=== PATIENT | male | born 1990 | race Two or more races ===

== ENCOUNTER 2016-04-22 01:55 | Emergency (ER) | payer SELFPAY ==
[~2016-04-22] VITALS: Ht 170.2 cm; Wt 72.6 kg
[2016-04-22 01:59] VITALS: BP 119/78
--- NOTE | 2016-04-22 03:04 | Emergency Room Report ---
History of Present Illness General Chief Complaint: Substance Abuse Source: Patient Present Illness HPI Is a 25-year-old male with no past medical history. He went to place patient said that he was using drugs tonight. Denies any symptom. Said he was using PCP or methamphetamine. Denies suicidal thought homicidal thought. No other complaint. Allergies: Coded Allergies: No Known Allergies (Unverified , 04/22/16) Patient History Past Medical History: see triage record, old chart reviewed Past Surgical History: none Pertinent Family History: none Social History: Denies: smoking Immunizations: other Reviewed Nursing Documentation: PMH: Agreed, PSxH: Agreed Nursing Documentation-PMH Past Medical History: No Stated History Review of Systems Eye: Denies: blurred vision, eye pain ENT: Denies: ear pain, nose congestion, throat swelling Respiratory: Denies: cough, shortness of breath Cardiovascular: Denies: chest pain, palpitations Gastrointestinal: Denies: abdominal pain, diarrhea, nausea, vomiting Musculoskeletal: Denies: back pain, joint pain Skin: Denies: rash Neurological: Denies: headache, numbness Endocrine: Denies: increased thirst, increased urine Hematologic/Lymphatic: Denies: easy bruising All Other Systems: negative except mentioned in HPI Physical Exam Vital Signs Date Time Temp Pulse Resp B/P Pulse Ox O2 Delivery O2 Flow Rate FiO2 04/22/16 01:49 61 18 125/80 99 Room Air 04/22/16 01:59 97.0 vitals normal Sp02 EP Interpretation: reviewed, normal General Appearance: well appearing, no apparent distress, alert Head: normocephalic, atraumatic Eyes: bilateral eye EOMI, bilateral eye PERRL ENT: hearing grossly normal, normal pharynx Neck: full range of motion, supple, no meningismus Respiratory: chest non-tender, lungs clear, normal breath sounds Cardiovascular #1: regular rate, rhythm, no murmur Gastrointestinal: normal bowel sounds, non tender, no mass, no organomegaly, no bruit, non-distended Musculoskeletal: back normal, gait/station normal, normal range of motion Psychiatric: mood/affect normal Skin: warm/dry Medical Decision Making Diagnostic Impression: Primary Impression: Substance abuse ER Course Patient presents with drug abuse. Unlikely recent use. He claimed we'll use an hour ago. He is sleepy and not tachycardic. He denies suicidal thought homicidal thought. We'll discharge home. This patient is a chronic risk of self injury due to poor impulse control, limited coping skills, and judgment intermittently impaired by intoxication. I believe that the available clinical evidence to suggest that these characteristics derived primarily from personality disorder and are likely very stable over time. Hospitalization would likely attenuate risk of self-harm only during nursing home period, without lasting risk reduction. Serious self-harm , while possible, would likely be inadvertent, and because of impulsivity, and foreseeable. For these reasons, I do not believe hospitalization would provide meaningful reduction in risk of self-harm. Last Vital Signs Date Time Temp Pulse Resp B/P Pulse Ox O2 Delivery O2 Flow Rate FiO2 04/22/16 01:59 97.0 66 16 119/78 97 Room Air Status: improved Disposition: HOME, SELF-CARE Condition: Stable Patient Instructions: Substance Use Disorder Additional Instructions: Followup with your DrNicci in 7 days. Abstain from drugs and alcohol. Return if worse. ELMER BAIRES M.D. Apr 22, 2016 03:04
[2016-04-22 03:19] VITALS: BP 124/82
[2016-04-22 03:20] VITALS: BP 124/82
[2016-07-11] MEDS ORDERED: UNOBMED (16:23)
== END 2016-04-22 03:20 | disposition home or self-care (01) ==
LOC: EDBD 01:55 → EMR 02:18
DX: F15.10 Other stimulant abuse, uncomplicated (principal)
CPT/HCPCS: 99282

== ENCOUNTER → 2016-07-11 | Emergency (ER) | payer SELFPAY ==
[~2016-07-11] VITALS: Ht 172.7 cm; Wt 65.8 kg
[~2016-07-11] MED LIST: DiphenhydrAMINE 50mg/ml Inj IM ONE; DiphenhydrAMINE 50mg/ml Inj ONE; Haloperidol 5mg/ml Inj IM ONE; Haloperidol 5mg/ml Inj ONE; LORazepam Inj 2mg/ml 1ml IM ONE; UNOBMED
--- NOTE | 2016-07-11 17:12 | Emergency Room Report ---
History of Present Illness General Chief Complaint: Behavioral Complaint Source: EMS Present Illness HPI Patient is brought in by paramedics and police department Patient was initially contacted by police department after being found acting bizarre there were not around him It was recommended for the patient to be put on a 5150 was brought to the emergency room Patient here remains somnolent There was no reports of trauma at the scene Patient had initially been acting and behaving appropriately however the police report the patient began acting in a bizarre manner and having auditory and visual hallucinations Unknown regarding the patient's past medical history Unknown regarding psychiatric history or drug abuse History of present illness is limited as the patient himself does not provide any further input , Allergies: Coded Allergies: No Known Allergies (Unverified , 04/22/16) Patient History Limited by: medical condition Pertinent Family History: unable to obtain Reviewed Nursing Documentation: PMH: Agreed, PSxH: Agreed Nursing Documentation-PMH Past Medical History Deferred: Patient Unconscious Review of Systems All Other Systems: negative except mentioned in HPI Physical Exam Vital Signs Date Time Temp Pulse Resp B/P Pulse Ox O2 Delivery O2 Flow Rate FiO2 07/11/16 16:15 86 18 106/71 97 Sp02 EP Interpretation: reviewed, normal General Appearance: no apparent distress Head: normocephalic, atraumatic Eyes: bilateral eye EOMI, bilateral eye PERRL ENT: normal pharynx Neck: supple, thyroid normal Respiratory: lungs clear, normal breath sounds Cardiovascular #1: regular rate, rhythm, no edema Gastrointestinal: non tender, soft, no mass Musculoskeletal: other - Patient does not follow commands however when the patient became aggressive moving all extremities without focal deficit, Neurologic: other - Responsive to physical stimuli, patient also has become more verbal throughout his stay Skin: no rash, warm/dry Lymphatic: no adenopathy Medical Decision Making Diagnostic Impression: Primary Impression: Behavioral change Additional Impression: Medical clearance for psychiatric admission ER Course Patient's complex requiring multiple blood work IV establishment Patient was found to be positive for multiple drugs has done better throughout his stay Given his auditory and visual hallucinations was seen by psychiatric eval team and placed on a psychiatric hold Patient has been further medically stabilized and cleared and the son being transported for further inpatient care Labs Test 07/11/16 17:00 07/11/16 17:15 White Blood Count 12.6 K/UL (4.8-10.8) Red Blood Count 4.56 M/UL (4.70-6.10) Hemoglobin 13.0 G/DL (14.2-18.0) Hematocrit 41.2 % (42.0-52.0) Mean Corpuscular Volume 90 FL (80-99) Mean Corpuscular Hemoglobin 28.6 PG (27.0-31.0) Mean Corpuscular Hemoglobin Concent 31.6 G/DL (32.0-36.0) Red Cell Distribution Width 13.1 % (11.6-14.8) Platelet Count 308 K/UL (150-450) Mean Platelet Volume 6.9 FL (6.5-10.1) Neutrophils (%) (Auto) 75.5 % (45.0-75.0) Lymphocytes (%) (Auto) 16.6 % (20.0-45.0) Monocytes (%) (Auto) 5.2 % (1.0-10.0) Eosinophils (%) (Auto) 2.0 % (0.0-3.0) Basophils (%) (Auto) 0.8 % (0.0-2.0) Sodium Level 139 mEQ/L (135-145) Potassium Level 3.7 mEQ/L (3.4-4.9) Chloride Level 97 mEQ/L (98-107) Carbon Dioxide Level 23 mEQ/L (20-30) Anion Gap 19 (5-15) Blood Urea Nitrogen 12 mg/dL (7-23) Creatinine 0.8 mg/dL (0.7-1.2) Estimat Glomerular Filtration Rate > 60 mL/min (>60) Glucose Level 94 mg/dL (74-106) Calcium Level 9.0 mg/dL (8.6-10.2) Total Bilirubin 0.2 mg/dL (0.0-1.2) Aspartate Amino Transf (AST/SGOT) 18 U/L (5-40) Alanine Aminotransferase (ALT/SGPT) 10 U/L (3-41) Alkaline Phosphatase 108 U/L (40-129) Total Protein 7.9 g/dL (6.6-8.7) Albumin 4.0 g/dL (3.5-5.2) Globulin 3.9 g/dL Albumin/Globulin Ratio 1.0 (1.0-2.7) Salicylates Level < 1 mg/dL (10-30) Acetaminophen Level < 10 ug/mL (10-30) Serum Alcohol 91 mg/dL Urine Opiates Screen Negative (NEGATIVE) Urine Barbiturates Screen Negative (NEGATIVE) Phencyclidine (PCP) Screen Negative (NEGATIVE) Urine Amphetamines Screen Positive (NEGATIVE) Urine Benzodiazepines Screen Positive (NEGATIVE) Urine Cocaine Screen Negative (NEGATIVE) Urine Marijuana (THC) Screen Positive (NEGATIVE) Last Vital Signs Date Time Temp Pulse Resp B/P Pulse Ox O2 Delivery O2 Flow Rate FiO2 07/11/16 16:15 86 18 106/71 97 Status: improved Disposition: XFER TO PSYCH HOSP/UNIT Condition: Improved Referrals: NOT CHOSEN IPA/,REFERRING (PCP) JOSE MANUEL OSBORN D.O. Jul 11, 2016 17:12
[2016-07-11 17:31] VITALS: BP 106/71
[2016-07-11 17:40] LABS: BASOPHILS % (AUTO) 0.8 % (0.0-2.0); LYMPHOCYTES % (AUTO) 16.6 % (20.0-45.0); MEAN CORPUSCULAR HEMOGLOBIN 28.6 PG (27.0-31.0); MEAN CORPUSCULAR HGB CONC 31.6 G/DL (32.0-36.0); MEAN CORPUSCULAR VOLUME 90 FL (80-99); MEAN PLATELET VOLUME 6.9 FL (6.5-10.1); MONOCYTES % (AUTO) 5.2 % (1.0-10.0); NEUTROPHILS % (AUTO) 75.5 % (45.0-75.0); PLATELET COUNT 308 K/UL (150-450); RED BLOOD COUNT 4.56 M/UL (4.70-6.10); RED CELL DISTRIBUTION WIDTH 13.1 % (11.6-14.8); WHITE BLOOD COUNT 12.6 K/UL (4.8-10.8)
[2016-07-11 17:58] LABS: ACETAMINOPHEN < 10 ug/mL (10-30)
[2016-07-11 18:01] LABS: ALANINE AMINOTRANSFERASE 10 U/L (3-41); ALCOHOL 91 mg/dL; ANION GAP 19 (5-15); ASPARTATE AMINO TRANSFERASE 18 U/L (5-40); CARBON DIOXIDE 23 mEQ/L (20-30); CHLORIDE 97 mEQ/L (98-107); CREATININE 0.8 mg/dL (0.7-1.2); GLOMERULAR FILTRATION RATE > 60 mL/min (>60); HEMOLYSIS 3; POTASSIUM 3.7 mEQ/L (3.4-4.9); SODIUM 139 mEQ/L (135-145); TOTAL PROTEIN 7.9 g/dL (6.6-8.7)
[2016-07-11 18:30] VITALS: BP 114/76
[2016-07-11 19:38] VITALS: BP 122/55
[2016-07-11 23:45] VITALS: BP 110/72
[2016-07-12 01:30] VITALS: BP 105/68
[2016-07-12 03:36] VITALS: BP 108/66
[2016-07-12 05:33] VITALS: BP 114/65
[2016-07-12 06:56] VITALS: BP 121/65
[2016-07-12 13:47] VITALS: BP 118/72
[2016-07-12 15:31] VITALS: BP 121/75
== END ==
LOC: EDUNIT# 16:09 → EDBD 16:24 → EMR 16:42
DX: F91.9 Conduct disorder, unspecified (principal); R44.0 Auditory hallucinations; R44.1 Visual hallucinations
CPT/HCPCS: 36415; 80053; 80300; 85025; 99285; G0480; 80329